=== PATIENT | male | born 1995 | race Two or more races ===

== ENCOUNTER 2025-05-08 23:16 | Emergency (ER) | payer OTHER ==
[~2025-05-08] VITALS: Ht 177.8 cm; Wt 74.8 kg
[~2025-05-08 23:16] MED LIST: BENADRYL25 MG PO; CLARINEX2.5 MG/5 M; MEDROL4 MG PO
[2025-05-09 00:03] VITALS: BP 124/80; O2SAT 98
[2025-05-09] MEDS ORDERED: ORPHENADRINE CITRATE 30 MG/ML AMPUL IM STA (03:12)
[2025-05-09] MEDS ORDERED: DEXAMETHASONE SODIUM PHOSPHATE 4 MG/ML VIAL IM STA (03:12)
[2025-05-09] MEDS ORDERED: KETOROLAC TROMETHAMINE 60 MG VIAL IM STA (03:12)
[2025-05-09] MEDS ORDERED: TRAMADOL HCL 50 MG TABLET PO STA (03:13)
[2025-05-09] MEDS ORDERED: ORPHENADRINE CITRATE 30 MG/ML AMPUL ONE (03:24)
[2025-05-09] MEDS ORDERED: KETOROLAC TROMETHAMINE 60 MG VIAL IM ONE (03:24)
[2025-05-09] MEDS ORDERED: DEXAMETHASONE SODIUM PHOSPHATE 4 MG/ML VIAL ONE (03:24)
== END 2025-05-09 03:56 | disposition home or self-care (01) ==
LOC: ER 23:24
DX: M54.42 Lumbago with sciatica, left side (principal); Z91.013 Allergy to seafood